=== PATIENT | male | born 1975 | race Asian ===

== ENCOUNTER 2022-09-06 14:44 | Emergency (ER) | payer OTHER ==
[~2022-09-06] VITALS: Ht 167.6 cm; Wt 72.6 kg
--- NOTE | 2022-09-06 14:56 | NUR ---
PATIENT AMBULATED TO BED 01
--- NOTE | 2022-09-06 15:00 | NUR ---
46 Y/O MALE BIB SELF, PATIENT PRESENTS TO ED WITH FACIAL PAIN AND SORES ON FACE FOR 4 DAYS. PT STATES HE WAS SEEN AT [facility] YESTERDAY AND WAS DX WITH SHINGLES AND GIVEN RX OF VALTREX AND DOXYCYCLINE. PT STATES HE WAS TOLD BY URGENT CARE THAT HE HAD A LOW WBC COUNT OF 2.7. DENIES N/V/D; SKIN OPEN SORES ON LEFT SIDE OF FACE/WARM/DRY; AAOX4 WITH EVEN AND STEADY GAIT; PT DENIES ANY FEVER, CP, SOB, OR COUGH AT THIS TIME; PATIENT STATES PAIN OF 6/10 AT THIS TIME; PATIENT POSITIONED FOR COMFORT; HOB ELEVATED; BEDRAILS UP X2; BED DOWN. ER MD MADE AWARE OF PT STATUS. PMH: LEUKOPENIA NKA
[2022-09-06 15:03] VITALS: BP 124/84
[2022-09-06] MEDS ORDERED: CEPH500C16 PO (15:51)
[2022-09-06 16:01] VITALS: BP 124/84
--- NOTE | 2022-09-06 16:01 | NUR ---
Patient discharged with v/s stable. Written and verbal after care instructions given and explained. Patient alert, oriented and verbalized understanding of instructions. Ambulatory with steady gait. All questions addressed prior to discharge. ID band removed. Patient advised to follow up with PMD. Rx of KEFLEX (SENT) given. Patient educated on indication of medication including possible reaction and side effects. Opportunity to ask questions provided and answered.
== END 2022-09-06 16:01 | disposition home or self-care (01) ==
LOC: MED 14:44
DX: B02.9 Zoster without complications (principal); Z79.899 Other long term (current) drug therapy
CPT/HCPCS: 99283